=== PATIENT | female | born 1980 | race Caucasian/White ===

== ENCOUNTER 2020-01-25 06:59 | Inpatient (IN) | payer MEDICAID ==
[~2020-01-25] VITALS: Ht 167.6 cm; Wt 86.2 kg
[2020-01-25] MEDS ORDERED: NITROGLYCERIN 0.4 MG/TAB BOTTLE SL ONE ×2 (07:30→07:37)
[2020-01-25] MEDS ORDERED: ASPIRIN 325 MG TABLET PO ONE (07:30)
--- NOTE | 2020-01-25 07:30 | NUR ---
MD at bedside assessing patient.
[2020-01-25] MEDS ORDERED: ASPIRIN 325 MG TABLET ONE (07:37)
--- NOTE | 2020-01-25 07:42 | NUR ---
1 tab of 0.4mg of nitroglycerin given.
--- NOTE | 2020-01-25 07:47 | NUR ---
Third Nitro given to the patient o.4mg 1 tab.
[2020-01-25 08:00] LABS: BASOPHILS # (AUTO) 0.1 K/uL (0.0-8.0); BASOPHILS % (AUTO) 0.9 % (0.0-2.0); EOSINOPHILS # (AUTO) 0.3 K/uL (0.0-0.7); EOSINOPHILS % (AUTO) 4.8 % (0.0-7.0); HEMATOCRIT 31.8 % (31.2-41.9); HEMOGLOBIN 10.1 g/dL (10.9-14.3); LYMPHOCYTES # (AUTO) 1.5 K/uL (20.0-40.0); LYMPHOCYTES % (AUTO) 24.6 % (20.5-51.5); MEAN CORPUSCULAR HEMOGLOBIN 22.8 uug (24.7-32.8); MEAN CORPUSCULAR HGB CONC 32 g/dL (32.3-35.6); MEAN CORPUSCULAR VOLUME 71.5 fL (75.5-95.3); MONOCYTES # (AUTO) 0.4 K/uL (2.0-10.0); MONOCYTES % (AUTO) 5.7 % (0.0-11.0); PLATELET COUNT (AUTO) 216 K/uL (179-408); RED BLOOD CELL COUNT(AUTO) 4.44 MIL/uL (3.63-4.92); WHITE BLOOD COUNT (AUTO) 6.3 K/uL (3.8-11.8)
[2020-01-25 08:05] LABS: CREATININE 0.8 mg/dL (0.6-1.3)
[2020-01-25 08:21] LABS: BILIRUBIN,DIRECT 0.1 mg/dL (0.0-0.2); BILIRUBIN,TOTAL 0.2 mg/dL (0.2-1.0); TOTAL PROTEIN, SERUM 6.8 g/dL (6.4-8.2)
--- NOTE | 2020-01-25 09:43 | NUR ---
Called MOSES Sylvester to call back.
--- NOTE | 2020-01-25 10:09 | NUR ---
Anton Sylvester NP at [facility] assessing patient.
[2020-01-25] MEDS ORDERED: Z GUARD REMEDY PASTE 57 GM TUBE TOP PRN (10:30)
[2020-01-25] MEDS ORDERED: MORPHINE SULFATE 2 MG/1 ML DISP.SYRIN IV PRN (10:30)
[2020-01-25] MEDS ORDERED: MAGNESIUM HYDROXIDE 30 ML LIQUID UDC PO PRN (10:30)
[2020-01-25] MEDS ORDERED: ACETAMINOPHEN 325 MG TABLET PO PRN (10:30)
[2020-01-25] MEDS ORDERED: NITROGLYCERIN 0.4 MG/TAB BOTTLE SL PRN (10:30)
[2020-01-25] MEDS ORDERED: HYDROCODONE/APAP 5-325MG TABLET PO PRN (10:30)
[2020-01-25] MEDS ORDERED: ONDANSETRON 4 MG/2 ML VIAL IV PRN (10:30)
--- NOTE | 2020-01-25 10:40 | NUR ---
Patient swabbed for COVID ( Rapid), awaiting for results
--- NOTE | 2020-01-25 11:09 | NUR ---
Transferrred patient to Room 330 via WC.
[2020-01-25 12:00] VITALS: BP 101/57
[2020-01-25 16:00] VITALS: BP 109/60
--- NOTE | 2020-01-25 18:58 | NUR ---
pt. resting in bed alert oriented x4. pt. denies any pain throughout shift. pt. denies any sob/ difficulty breathing throughout shift. IV intact. Pt on room air. pt. understands plan of care. Pt. to be NPO after mightnight tonight for ultrasound of abdomen. safety measures in place. call light within reach will endorse to PM nurse.
--- NOTE | 2020-01-25 19:45 | NUR ---
Awake/ alert/oriented x 4 during initial rounds. Denies any pain/discomforts at this time. No s/s of respiratory distress noted. Patient aware about the procedure to be done in Am, that she'll be NPO after midnight. Verbalized understanding. Safety measure and fall prevention observed. Continue care as planned.
[2020-01-25 20:00] VITALS: BP 107/62
[2020-01-26] VITALS: BP 99/50
--- NOTE | 2020-01-26 06:18 | NUR ---
Shift End Report: Vs stable. Kept NPO after midnight as ordered for an scheduled procedure. No complaint presented all night. All needs attended and met. No significant event reported. Continue current rehab plan of care.
[2020-01-26] MEDS ORDERED: PANTOPRAZOLE SODIUM 40 MG TABLET.DR PO SCH (07:00)
[2020-01-26 07:15] LABS: BASOPHILS # (AUTO) 0.1 K/uL (0.0-8.0); EOSINOPHILS # (AUTO) 0.4 K/uL (0.0-0.7); EOSINOPHILS % (AUTO) 6.3 % (0.0-7.0); HEMATOCRIT 31.5 % (31.2-41.9); HEMOGLOBIN 10.3 g/dL (10.9-14.3); LYMPHOCYTES # (AUTO) 1.8 K/uL (20.0-40.0); LYMPHOCYTES % (AUTO) 26.7 % (20.5-51.5); MEAN CORPUSCULAR HEMOGLOBIN 23.3 uug (24.7-32.8); MEAN CORPUSCULAR HGB CONC 33 g/dL (32.3-35.6); MEAN CORPUSCULAR VOLUME 71.3 fL (75.5-95.3); MONOCYTES # (AUTO) 0.5 K/uL (2.0-10.0); MONOCYTES % (AUTO) 7.3 % (0.0-11.0); NEUTROPHILS % (AUTO) 58.7 % (38.5-71.5); PLATELET COUNT (AUTO) 234 K/uL (179-408); RED BLOOD CELL COUNT(AUTO) 4.42 MIL/uL (3.63-4.92); WHITE BLOOD COUNT (AUTO) 6.9 K/uL (3.8-11.8)
[2020-01-26 07:30] VITALS: BP 121/71
[2020-01-26] MEDS ORDERED: NITROGLYCERIN 0.4 MG/TAB BOTTLE SL PRN (07:36)
[2020-01-26 07:46] LABS: CREATININE 0.8 mg/dL (0.6-1.3); MAGNESIUM 1.8 mg/dL (1.8-2.4); PHOSPHOROUS 4.2 mg/dL (2.5-4.9); POTASSIUM 3.9 mmol/L (3.5-5.1)
[2020-01-26] MEDS ORDERED: ASPIRIN 81 MG TAB.CHEW PO SCH (09:00)
[2020-01-26] MEDS ORDERED: HYDR-4384 PO (10:03)
--- NOTE | 2020-01-26 11:00 | NUR ---
Patient being discharged to home/self care without any needs. Patient is stable, alert and oriented and ambulatory. Iv access removed, intensive care specialist removed. ID wristband removed. Patient in no distress, reports 0/10 pain. Paper prescription for [place] by MARIA D Sylvester given to patient. Education provided. Discharge instructions reviewed with patient, questions and concerns addressed. Brother of patient is method of transport, in private car.
== END 2020-01-26 11:11 | disposition home or self-care (01) | DRG 243 ==
LOC: ER 07:04 → TELE3 10:49 → MEDSURG3 01-26 09:22
PROVIDERS: ADMIT Nurse Practitioner Acute Care; ATTEND Nurse Practitioner Acute Care
DX: K21.9 Gastro-esophageal reflux disease without esophagitis (principal); F17.210 Nicotine dependence, cigarettes, uncomplicated; E66.9 Obesity, unspecified; Z68.30 Body mass index [BMI] 30.0-30.9, adult; K80.20 Calculus of gallbladder without cholecystitis without obstruction; Z71.6 Tobacco abuse counseling
CPT/HCPCS: 36415; 70030-TC; 71045; 76700; 83690; 83735; 84100; 85025; 93005; 93307; A4663; G0378

== ENCOUNTER 2021-01-31 12:09 | Emergency (ER) | payer MEDICAID ==
[~2021-01-31] VITALS: Ht 167.6 cm; Wt 86.2 kg
--- NOTE | 2021-01-31 12:28 | NUR ---
blotchy rash all over body since Thursday, went to [employer] Thursday, itchy, no new soaps etc. Started to get SOB last night. Urgent care RX methylprednisolone. Pt denies CP, Dizziness, n/v, no no distress noted.
[2021-01-31] MEDS ORDERED: diphenhydrAMINE 50 MG CAPSULE PO ONE (12:45)
[2021-01-31] MEDS ORDERED: diphenhydrAMINE 50 MG CAPSULE ONE (12:49)
[2021-01-31] MEDS ORDERED: FAMO-144 PO (14:20)
[2021-01-31] MEDS ORDERED: EPIN0.3A4 IM (14:22)
[2021-01-31 14:51] VITALS: BP 126/73
--- NOTE | 2021-01-31 14:51 | NUR ---
Gave pt RX and d/c instructions, pt verbalized understanding.
== END 2021-01-31 14:45 | disposition home or self-care (01) ==
LOC: ER 12:09
DX: L50.9 Urticaria, unspecified (principal); Z87.891 Personal history of nicotine dependence
CPT/HCPCS: 99283; Q0163; A4663